=== PATIENT | female | born 1990 | race African-American/Black ===

== ENCOUNTER 2023-01-31 18:51 | Emergency (ER) | payer BC, SELFPAY ==
--- OUTSIDE RECORDS SUMMARY | 2023-01-31 18:55 | XMS REPORT | Continuity of Care Document ---
Author Name Unknown Address [address] [facility] [address] [place] [address] [facility] thconnect Address [address] [facility]. [address] [place] [address] Care Team Providers Care Oracle Scm Consultant Name Role Phone SARAH SPENCE Primary Care Physician Unavailab bettie EDDOC, GENERIC FOR EDM Attending Clinician UnaSARAH Nichole Attending Clinician Unavailable Sarah Farrell Attending Clinician [phone] [facility] Unavailab LOR Roman Attending Clinician Unavailable DILIP ALVARADO Attending Clinician Unava THANH Burgess Attending Clinician Unavail able Feliciano Hinojosa Attending Clinician Unavailable RABIA MAGANA Attending Clinician Unavailable Kelley Tatum MD Attending Clinician [phone] KELLEY TATUM Attending Clinician Unavailable KELLEY TATUM Attending Clinician Unavailable Doctor Unassigned, Schubert Attending Clinician U Thanh Desai DO Attending Clinician Rabia Magana MD Attending Clinician [phone] Physician, No Primary or Family Admitting Clinic ely Unavailable Payers Payer Name Policy Type Policy Number Effective Date Expirati on Date Source [facility] [employer] [id number] 2011 00:00:00 Problems Condition Name Condition Details Condition Category Status Onset Date Resolution Date Last Treatment Date Treating Clinician Comments Source Chronic idiopathic urticaria Chronic idiopathic urticaria Disease Active 09-26 00:00: 00 [facility] Sensation of fullness in left ear Sensation of fullness in left ear Disease Active 09-26 00:00: 00 [facility] Mild persistent asthma with exacerbati on Mild persistent asthma with exacerbati on Disease Active 09-26 00:00: 00 [facility] Lymphadeno camilla Lymphadeno camilla Disease Active 09-26 00:00: 00 [facility] Allergic rhinitis due to pollen Allergic rhinitis due to pollen Disease Active 09-26 00:00: 00 [facility] Adverse effect of vaccine, subsequent encounter Adverse effect of vaccine, subsequent encounter Disease Active 09-26 00:00: 00 [facility] HERBER positive HERBER positive Disease Active 04-29 00:00: 00 [facility] Mass of ovary Mass of ovary Disease Active 10-17 00:00: 00 [facility] Well adult exam Well adult exam Disease Active 10-17 00:00: 00 [facility] Dyspnea and respirator y abnormalit y Dyspnea and respirator y abnormalit y Disease Active 07-22 00:00: 00 Overview: Formattin g of this note might be different from the original. ICD10 Diagnosis Term Credit Representative Utility [facility] Idiopathic angioedema Idiopathic angioedema Disease Active 04-24 00:00: 00 [facility] Angioedema Angioedema Disease Active 04-24 00:00: 00 [facility] Allergies, Adverse Reactions, Alerts Allergy Name Allergy Type Status Severity Reaction(s) Onset Date Inactive Date Treating Clinician Comments Source Tuna Oil Drug Allergy Active Unknown - See comments 2020-02 00:00: 00 [facility] CHICKEN DERIVED DRUG INGREDI Active Unknown-Cmnt 2020-02 00:00: [facility]N [facility]ED[facility] Active Unknown-Cmnt 2020-02 00:00: 00 [facility] GREEN PEPPER DRUG INGREDI Active Unknown-Cmnt 2020-02 00:00: 00 [facility] POTATO DRUG INGREDI Active Unknown-Cmnt 2020-02 00:00: 00 [facility] SHRIMP DRUG INGREDI Active Unknown-Cmnt 2020-02 00:00: 00 [facility] TREE NUTS Food Active Unknown-Cmnt 2020-02 00:00: 00 [facility] TUNA OIL DRUG INGREDI Active Unknown-Cmnt 2020-02 00:00: 00 [facility] Chicken Derived Drug Allergy Active Unknown - See comments 2020-02 00:00: 00 [facility] Charleston Drug Allergy Active Unknown - See comments 2020-02 00:00: 00 [facility] Green Pepper Drug Allergy Active Unknown - See comments 2020-02 00:00: 00 [facility] Potato Drug Allergy Active Unknown - See comments 2020-02 00:00: 00 [facility] Shrimp Drug Allergy Active Unknown - See comments 2020-02 00:00: 00 [facility] Tree Nuts Food Allergy Active Unknown - See comments 2020-02 00:00: 00 [facility] iodine DA Active U 2014-02 00:00: 00 [facility] ceftriax one DA Active U GEN SWELLING 2014-02 00:00: 00 [facility] iodine DA Active U GEN SWELLING 2014-02 00:00: 00 [facility] Ceftazid juan daniel (Bulk) Propensi ty to adverse reaction s Active Swelling 06-22 00:00: 00 [facility] Iodine Propensi ty to adverse reaction s Active Swelling 06-22 00:00: 00 [facility] CEFTAZID JUAN DANIEL (BULK) DRUG Active Swelling 06-22 00:00: 00 [facility] IODINE DRUG INGREDI Active Swelling 06-22 00:00: 00 [facility] Iodine Drug Allergy Active Swelling 06-22 00:00: 00 Other reaction( s): Unknown [facility] Social History Social Habit Start Date Stop Date Quantity Comments Source Alcohol Comment social [facility] Gender identity [facility] Exposure to SARS-CoV-2 (event) Not sure [facility] Alcohol intake 2022-10-03 00:00:00 2022-10-03 00:00:00 Current drinker of alcohol (finding) [facility] History of Social function 2022-10-03 00:00:00 2022-10-03 00:00:00 [facility] Tobacco use and exposure 2022-10-03 00:00:00 2022-10-03 00:00:00 Smokeless tobacco non-user [facility] Sex Assigned At 1990 00:00:00 1990 00:00:00 [facility] Smoking Status Start Date Stop Date Source Never smoked tobacco [facility] Medications Ordered Medication Name Filled Medication Name Start Date Stop Date Current Medication? Ordering Clinician Indication Dosage Frequency Signature (SIG) Comments Components Source FOLIC ACID/MULTIV ITS-MIN (ADULT MULTIVITAMI N GUMMIES ORAL) 10-03 10:59: 48 10-03 00:00 :00 No Take by mouth. [facility] FOLIC ACID/MULTIV ITS-MIN (ADULT MULTIVITAMI N GUMMIES ORAL) 10-03 10:59: 48 10-03 00:00 :00 No Take by mouth. [facility] ferrous sulfate (IRON, FERROUS SULFATE,) 325 mg (65 mg iron) tablet 10-03 10:59: 44 10-03 00:00 :00 No 325mg Take 325 mg by mouth 2 (two) times daily. [facility] coffee extract (GREEN COFFEE SHANKAR) 400 mg Tab 10-03 10:59: 44 10-03 00:00 :00 No Take by mouth. [facility] ferrous sulfate (IRON, FERROUS SULFATE,) 325 mg (65 mg iron) tablet 10-03 10:59: 44 10-03 00:00 :00 No 325mg Take 325 mg by mouth 2 (two) times daily. [facility] coffee extract (GREEN COFFEE SHANKAR) 400 mg Tab 10-03 10:59: 44 10-03 00:00 :00 No Take by mouth. [facility] levonorgest reL (MIRENA) IUD 1 Device 05-31 22:00: 00 05-31 22:00 :00 No [id number] 1{devic e} [facility] levonorgest reL (MIRENA) IUD 1 Device 05-31 22:00: 00 05-31 20:30 :00 No [id number] 1{devic e} [facility] levonorgest reL (MIRENA) IUD 1 Device 05-31 22:00: 00 05-31 20:30 :00 No [id number] 1{devic e} 1 Device, Intrauteri ne, ONCE, 1 dose, 05/31/20 at 1700, Routine [facility] levonorgest reL (MIRENA) IUD 1 Device 05-31 22:00: 00 05-31 20:30 :00 No [id number] 1{devic e} [facility] levonorgest reL (MIRENA) IUD 1 Device 05-31 22:00: 00 05-31 20:30 :00 No [id number] 1{devic e} 1 Device, Intrauteri ne, ONCE, 1 dose, 05/31/20 at 1700, Routine [facility] levonorgest reL (MIRENA) IUD 1 Device 05-31 22:00: 00 05-31 20:30 :00 No [id number] 1{devic e} [facility] levonorgest reL (MIRENA) IUD 1 Device 05-31 22:00: 00 05-31 20:30 :00 No [id number] 1{devic e} 1 Device, Intrauteri ne, ONCE, 1 dose, Sat05/31/20 at 1700, Routine [facility] levonorgest rel (MIRENA) 20 mcg/24 hours (5 yrs) 52 mg IUD 05-31 20:45: 38 05-31 00:00 :00 No 1{devic e} 1 Device by Intrauteri ne route once now. [facility] levonorgest rel (MIRENA) 20 mcg/24 hours (5 yrs) 52 mg IUD 05-31 20:45: 38 05-31 00:00 :00 No 1{devic e} 1 Device by Intrauteri ne route once now. [facility] levonorgest rel (MIRENA) 20 mcg/24 hours (5 yrs) 52 mg IUD 05-31 20:45: 38 05-31 00:00 :00 No 1{devic e} 1 Device by Intrauteri ne route once now. [facility] levonorgest rel (MIRENA) 20 mcg/24 hours (5 yrs) 52 mg IUD 05-31 20:45: 38 05-31 00:00 :00 No 1{devic e} 1 Device by Intrauteri ne route once now. [facility] levonorgest rel (MIRENA) 20 mcg/24 hours (5 yrs) 52 mg IUD 05-31 20:45: 38 05-31 00:00 :00 No 1{devic e} 1 Device by Intrauteri ne route once now. [facility] levonorgest rel (MIRENA) 20 mcg/24 hours (5 yrs) 52 mg IUD - 20:45: 38 05-31 00:00 :00 No 1{devic e} 1 Device by Intrauteri ne route once now. [facility] it[facility] coffee extract (GREEN COFFEE SHANKAR) 400 mg Tab 2021-0 4-06 19:26: 01 Yes Take by mouth. [facility] ity [facility] levonorgest rel (MIRENA) 20 mcg/24 hours (5 yrs) 52 mg IUD 2021-0 4-06 19:26: 01 Yes 1{devic e} 1 Device by Intrauteri ne route once now. [facility] ity [facility] coffee extract (GREEN COFFEE SHANKAR) 400 mg Tab 2021-0 4-06 19:26: 01 Yes Take by mouth. [facility] ity [facility] levonorgest rel (MIRENA) 20 mcg/24 hours (5 yrs) 52 mg IUD 2021-0 4-06 19:26: 01 Yes 1{devic e} 1 Device by Intrauteri ne route once now. [facility] extract (GREEN COFFEE SHANKAR) 400 mg Tab 2021-0 4-06 19:26: 01 Yes Take by mouth. [facility] it[facility] coffee extract (GREEN COFFEE SHNAKAR) 400 mg Tab 2021-0 4-06 19:26: 01 Yes Take by mouth. [facility] it[facility] coffee extract (GREEN COFFEE SHANKAR) 400 mg Tab 2021-0 4-06 19:26: 01 Yes Take by mouth. [facility] coffee extract (GREEN COFFEE SHANKAR) 400 mg Tab 2021-0 4-06 19:26: 01 Yes Take by mouth. [facility] coffee extract (GREEN COFFEE SHANKAR) 400 mg Tab 2021-0 4-06 19:26: 01 Yes Take by mouth. [facility] coffee extract (GREEN COFFEE SHANKAR) 400 mg Tab 2021-0 4-06 19:26: 01 Yes Take by mouth. [facility] it[facility] coffee extract (GREEN COFFEE SHANKAR) 400 mg Tab 2021-0 4-06 19:26: 01 Yes Take by mouth. [facility] coffee extract (GREEN COFFEE SHANKAR) 400 mg Tab 2021-0 4-06 14:26: 01 Yes Take by mouth. [facility]L 20 mcg/24 hours (6 yrs) 52 mg IUD 2021-0 4-06 00:00: 00 06-01 04:59 :00 No [id number] 1{devic e} 1 Device by Intrauteri ne route once now for 1 dose. [facility]L 20 mcg/24 hours (6 yrs) 52 mg IUD 2020-0 4-06 00:00: 00 06-01 04:59 :00 No [id number] 1{devic e} 1 Device by Intrauteri ne route once now for 1 dose. [facility] reL 20 mcg/24 hours (6 yrs) 52 mg IUD 2020-0 4- 00:00: 00 05-31 00:00 :00 No [id number] 1{devic e} 1 Device by Intrauteri ne route once now for 1 dose. [facility] levonorgest reL 20 mcg/24 hours (6 yrs) 52 mg IUD 2020-0 05-31 00:00: 00 05-31 00:00 :00 No [id number] 1{devic e} 1 Device by Intrauteri ne route once now for 1 dose. [facility] levonorgest reL 20 mcg/24 hours (6 yrs) 52 mg IUD 05-31 00:00: 00 05-31 00:00 :00 No [id number] 1{devic e} 1 Device by Intrauteri ne route once now for 1 dose. [facility] levonorgest reL 20 mcg/24 hours (6 yrs) 52 mg IUD 4- 00:00: 00 05-31 00:00 :00 No [id number] 1{devic e} 1 Device by Intrauteri ne route once now for 1 dose. [facility] levonorgest rel (MIRENA) 20 mcg/24 hours (5 yrs) 52 mg IUD 11-03 22:14: 37 Yes 1{devic e} 1 Device by Intrauteri ne route once now. [facility] levonorgest rel (MIRENA) 20 mcg/24 hours (5 yrs) 52 mg IUD 11-03 22:14: 37 Yes 1{devic e} 1 Device by Intrauteri ne route once now. [facility] levonorgest rel (MIRENA) 20 mcg/24 hours (5 yrs) 52 mg IUD 11-03 22:14: 37 Yes 1{devic e} 1 Device by Intrauteri ne route once now. [facility] levonorgest rel (MIRENA) 20 mcg/24 hours (5 yrs) 52 mg IUD 11-03 22:14: 37 Yes 1{devic e} 1 Device by Intrauteri ne route once now. [facility] levonorgest rel (MIRENA) 20 mcg/24 hours (5 yrs) 52 mg IUD 11-03 22:14: 37 Yes 1{devic e} 1 Device by Intrauteri ne route once now. [facility] levonorgest rel (MIRENA) 20 mcg/24 hours (5 yrs) 52 mg IUD 11-03 22:14: 37 Yes 1{devic e} 1 Device by Intrauteri ne route once now. [facility] FOLIC ACID/MULTIV ITS-MIN (ADULT MULTIVITAMI N GUMMIES ORAL) 11-03 22:01: 43 Yes Take by mouth. [facility] ferrous sulfate (IRON, FERROUS SULFATE,) 325 mg (65 mg iron) tablet 11-03 22:01: 43 Yes 325mg Take 325 mg by mouth 2 (two) times daily. [facility] vitamin B-12 (VITAMIN B-12) 1,000 mcg tablet 11-03 22:01: 43 Yes 1000ug Take 1,000 mcg by mouth daily. [facility] coffee extract (GREEN COFFEE SHANKAR) 400 mg Tab 11-03 22:01: 43 Yes Take by mouth. [facility] FOLIC ACID/MULTIV ITS-MIN (ADULT MULTIVITAMI N GUMMIES ORAL) 11-03 22:01: 43 Yes Take by mouth. [facility] ferrous sulfate (IRON, FERROUS SULFATE,) 325 mg (65 mg iron) tablet 11-03 22:01: 43 Yes 325mg Take 325 mg by mouth 2 (two) times daily. [facility] vitamin B-12 (VITAMIN B-12) 1,000 mcg tablet 11-03 22:01: 43 Yes 1000ug Take 1,000 mcg by mouth daily. [facility] coffee extract (GREEN COFFEE SHANKAR) 400 mg Tab 11-03 22:01: 43 Yes Take by mouth. [facility] FOLIC ACID/MULTIV ITS-MIN (ADULT MULTIVITAMI N GUMMIES ORAL) 11-03 22:01: 43 Yes Take by mouth. [facility] ferrous sulfate (IRON, FERROUS SULFATE,) 325 mg (65 mg iron) tablet 11-03 22:01: 43 Yes 325mg Take 325 mg by mouth 2 (two) times daily. [facility] vitamin B-12 (VITAMIN B-12) 1,000 mcg tablet 11-03 22:01: 43 Yes 1000ug Take 1,000 mcg by mouth daily. [facility] coffee extract (GREEN COFFEE SHANKAR) 400 mg Tab 11-03 22:01: 43 Yes Take by mouth. [facility] FOLIC ACID/MULTIV ITS-MIN (ADULT MULTIVITAMI N GUMMIES ORAL) 11-03 22:01: 43 Yes Take by mouth. [facility] ferrous sulfate (IRON, FERROUS SULFATE,) 325 mg (65 mg iron) tablet 11-03 22:01: 43 Yes 325mg Take 325 mg by mouth 2 (two) times daily. [facility] vitamin B-12 (VITAMIN B-12) 1,000 mcg tablet 11-03 22:01: 43 Yes 1000ug Take 1,000 mcg by mouth daily. [facility] FOLIC ACID/MULTIV ITS-MIN (ADULT MULTIVITAMI N GUMMIES ORAL) 11-03 22:01: 43 Yes Take by mouth. [facility] ferrous sulfate (IRON, FERROUS SULFATE,) 325 mg (65 mg iron) tablet 11-03 22:01: 43 Yes 325mg Take 325 mg by mouth 2 (two) times daily. [facility] vitamin B-12 (VITAMIN B-12) 1,000 mcg tablet 11-03 22:01: 43 Yes 1000ug Take 1,000 mcg by mouth daily. [facility] FOLIC ACID/MULTIV ITS-MIN (ADULT MULTIVITAMI N GUMMIES ORAL) 11-03 22:01: 43 Yes Take by mouth. [facility] ferrous sulfate (IRON, FERROUS SULFATE,) 325 mg (65 mg iron) tablet 11-03 22:01: 43 Yes 325mg Take 325 mg by mouth 2 (two) times daily. [facility] vitamin B-12 (VITAMIN B-12) 1,000 mcg tablet 11-03 22:01: 43 Yes 1000ug Take 1,000 mcg by mouth daily. [facility] FOLIC ACID/MULTIV ITS-MIN (ADULT MULTIVITAMI N GUMMIES ORAL) 11-03 22:01: 43 Yes Take by mouth. [facility] ferrous sulfate (IRON, FERROUS SULFATE,) 325 mg (65 mg iron) tablet 11-03 22:01: 43 Yes 325mg Take 325 mg by mouth 2 (two) times daily. [facility] vitamin B-12 (VITAMIN B-12) 1,000 mcg tablet 11-03 22:01: 43 Yes 1000ug Take 1,000 mcg by mouth daily. [facility] FOLIC ACID/MULTIV ITS-MIN (ADULT MULTIVITAMI N GUMMIES ORAL) 11-03 22:01: 43 Yes Take by mouth. [facility] ferrous sulfate (IRON, FERROUS SULFATE,) 325 mg (65 mg iron) tablet 11-03 22:01: 43 Yes 325mg Take 325 mg by mouth 2 (two) times daily. [facility] vitamin B-12 (VITAMIN B-12) 1,000 mcg tablet 11-03 22:01: 43 Yes 1000ug Take 1,000 mcg by mouth daily. [facility] FOLIC ACID/MULTIV ITS-MIN (ADULT MULTIVITAMI N GUMMIES ORAL) 11-03 22:01: 43 Yes Take by mouth. [facility] ferrous sulfate (IRON, FERROUS SULFATE,) 325 mg (65 mg iron) tablet 11-03 22:01: 43 Yes 325mg Take 325 mg by mouth 2 (two) times daily. [facility] vitamin B-12 (VITAMIN B-12) 1,000 mcg tablet 11-03 22:01: 43 Yes 1000ug Take 1,000 mcg by mouth daily. [facility] FOLIC ACID/MULTIV ITS-MIN (ADULT MULTIVITAMI N GUMMIES ORAL) 11-03 22:01: 43 Yes Take by mouth. [facility] ferrous sulfate (IRON, FERROUS SULFATE,) 325 mg (65 mg iron) tablet 11-03 22:01: 43 Yes 325mg Take 325 mg by mouth 2 (two) times daily. [facility] vitamin B-12 (VITAMIN B-12) 1,000 mcg tablet 11-03 22:01: 43 Yes 1000ug Take 1,000 mcg by mouth daily. [facility] FOLIC ACID/MULTIV ITS-MIN (ADULT MULTIVITAMI N GUMMIES ORAL) 11-03 22:01: 43 Yes Take by mouth. [facility] ferrous sulfate (IRON, FERROUS SULFATE,) 325 mg (65 mg iron) tablet 11-03 22:01: 43 Yes 325mg Take 325 mg by mouth 2 (two) times daily. [facility] vitamin B-12 (VITAMIN B-12) 1,000 mcg tablet 11-03 22:01: 43 Yes 1000ug Take 1,000 mcg by mouth daily. [facility] FOLIC ACID/MULTIV ITS-MIN (ADULT MULTIVITAMI N GUMMIES ORAL) 11-03 22:01: 43 Yes Take by mouth. [facility] ferrous sulfate (IRON, FERROUS SULFATE,) 325 mg (65 mg iron) tablet 11-03 22:01: 43 Yes 325mg Take 325 mg by mouth 2 (two) times daily. [facility] vitamin B-12 (VITAMIN B-12) 1,000 mcg tablet 11-03 22:01: 43 Yes 1000ug Take 1,000 mcg by mouth daily. [facility] FOLIC ACID/MULTIV ITS-MIN (ADULT MULTIVITAMI N GUMMIES ORAL) 11-03 22:01: 43 Yes Take by mouth. [facility] ferrous sulfate (IRON, FERROUS SULFATE,) 325 mg (65 mg iron) tablet 11-03 22:01: 43 Yes 325mg Take 325 mg by mouth 2 (two) times daily. [facility] vitamin B-12 (VITAMIN B-12) 1,000 mcg tablet 11-03 22:01: 43 Yes 1000ug Take 1,000 mcg by mouth daily. [facility] coffee extract (GREEN COFFEE SHANKAR) 400 mg Tab 11-03 22:01: 43 Yes Take by mouth. [facility] FOLIC ACID/MULTIV ITS-MIN (ADULT MULTIVITAMI N GUMMIES ORAL) 11-03 22:01: 43 Yes Take by mouth. [facility] ferrous sulfate (IRON, FERROUS SULFATE,) 325 mg (65 mg iron) tablet 11-03 22:01: 43 Yes 325mg Take 325 mg by mouth 2 (two) times daily. [facility] vitamin B-12 (VITAMIN B-12) 1,000 mcg tablet 11-03 22:01: 43 Yes 1000ug Take 1,000 mcg by mouth daily. [facility] coffee extract (GREEN COFFEE SHANKAR) 400 mg Tab 11-03 22:01: 43 Yes Take by mouth. [facility] FOLIC ACID/MULTIV ITS-MIN (ADULT MULTIVITAMI N GUMMIES ORAL) 11-03 22:01: 43 Yes Take by mouth. [facility] ferrous sulfate (IRON, FERROUS SULFATE,) 325 mg (65 mg iron) tablet 11-03 22:01: 43 Yes 325mg Take 325 mg by mouth 2 (two) times daily. [facility] vitamin B-12 (VITAMIN B-12) 1,000 mcg tablet 11-03 22:01: 43 Yes 1000ug Take 1,000 mcg by mouth daily. [facility] coffee extract (GREEN COFFEE SHANKAR) 400 mg Tab 11-03 22:01: 43 Yes Take by mouth. [facility] FOLIC ACID/MULTIV ITS-MIN (ADULT MULTIVITAMI N GUMMIES ORAL) 11-03 17:01: 43 Yes Take by mouth. [facility] ferrous sulfate (IRON, FERROUS SULFATE,) 325 mg (65 mg iron) tablet 11-03 17:01: 43 Yes 325mg Take 325 mg by mouth 2 (two) times daily. [facility] vitamin B-12 (VITAMIN B-12) 1,000 mcg tablet 11-03 17:01: 43 Yes 1000ug Take 1,000 mcg by mouth daily. [facility] vitamin B-12 (VITAMIN B-12) 1,000 mcg tablet 11-03 17:01: 43 Yes 1000ug Take 1,000 mcg by mouth daily. [facility] vitamin B-12 (VITAMIN B-12) 1,000 mcg tablet 11-03 17:01: 43 Yes 1000ug Take 1,000 mcg by mouth daily. [facility] FOLIC ACID/MULTIV ITS-MIN (ADULT MULTIVITAMI N GUMMIES ORAL) 10-06 18:22: 45 Yes Take by mouth. [facility] ferrous sulfate (IRON, FERROUS SULFATE,) 325 mg (65 mg iron) tablet 10-06 18:22: 45 Yes 325mg Take 325 mg by mouth 2 (two) times daily. [facility] vitamin B-12 (VITAMIN B-12) 1,000 mcg tablet 10-06 18:22: 45 Yes 1000ug Take 1,000 mcg by mouth daily. [facility] coffee extract (GREEN COFFEE SHANKAR) 400 mg Tab 10-06 18:22: 45 Yes Take by mouth. [facility] misoprostol (CYTOTEC) 200 mcg tablet 10-03 00:00: 00 Yes [id number] Take one tablet night before procedure and one tablet morning of procedure [facility] misoprostol (CYTOTEC) 200 mcg tablet 10-03 00:00: 00 Yes [id number] Take one tablet night before procedure and one tablet morning of procedure [facility] misoprostol (CYTOTEC) 200 mcg tablet 10-03 00:00: 00 Yes [id number] Take one tablet night before procedure and one tablet morning of procedure [facility] misoprostol (CYTOTEC) 200 mcg tablet 10-03 00:00: 00 Yes [id number] Take one tablet night before procedure and one tablet morning of procedure [facility] misoprostol (CYTOTEC) 200 mcg tablet 10-03 00:00: 00 Yes [id number] Take one tablet night before procedure and one tablet morning of procedure [facility] misoprostol (CYTOTEC) 200 mcg tablet 10-03 00:00: 00 Yes [id number] Take one tablet night before procedure and one tablet morning of procedure [facility] misoprostol (CYTOTEC) 200 mcg tablet 10-03 00:00: 00 Yes [id number] Take one tablet night before procedure and one tablet morning of procedure [facility] misoprostol (CYTOTEC) 200 mcg tablet 10-03 00:00: 00 Yes [id number] Take one tablet night before procedure and one tablet [facility] mcg tablet 10-03 00:00: 00 Yes [id number] Take one tablet night before procedure and one tablet morning of procedure [facility] misoprostol (CYTOTEC) 200 mcg tablet 10-03 00:00: 00 Yes [id number] Take one tablet night before procedure and one tablet morning of [facility]EC) 200 mcg tablet 10-03 00:00: 00 Yes [id number] Take one tablet night before procedure and one tablet morning of procedure [facility] misoprostol (CYTOTEC) 200 mcg tablet 10-03 00:00: 00 Yes [id number] Take one tablet night before procedure and one tablet morning of procedure [facility] misoprostol (CYTOTEC) 200 mcg tablet 10-03 00:00: 00 Yes [id number] Take one tablet night before procedure and one tablet morning of procedure [facility] misoprostol (CYTOTEC) 200 mcg tablet 10-03 00:00: 00 Yes [id number] Take one tablet night before procedure and one tablet morning of procedure [facility] misoprostol (CYTOTEC) 200 mcg tablet 10-03 00:00: 00 Yes [id number] Take one tablet night before procedure and one tablet morning of procedure [facility] misoprostol (CYTOTEC) 200 mcg tablet 10-03 00:00: 00 Yes [id number] Take one tablet night before procedure and one tablet morning of procedure [facility] misoprostol (CYTOTEC) 200 mcg tablet 10-03 00:00: 00 Yes [id number] Take one tablet night before procedure and one tablet morning of procedure [facility] misoprostol (CYTOTEC) 200 mcg tablet 10-03 00:00: 00 10-03 00:00 :00 No [id number] Take one tablet night before procedure and one tablet morning of procedure [facility] misoprostol (CYTOTEC) 200 mcg tablet 10-03 00:00: 00 10-03 00:00 :00 No [id number] Take one tablet night before procedure and one tablet morning of procedure [facility] XOLAIR 150 mg injection 08-15 00:00: 00 Yes once every month. [facility] [place] [facility] XOLAIR 150 mg injection 08-15 00:00: 00 Yes once every month. [facility] XOLAIR 150 mg injection 08-15 00:00: 00 Yes once every month. [facility] [place] [facility] XOLAIR 150 mg injection 08-15 00:00: 00 Yes once every month. [facility] [place] [facility] XOLAIR 150 mg injection 08-15 00:00: 00 Yes once every month. [facility] [place] [facility] XOLAIR 150 mg injection 08-15 00:00: 00 Yes once every month. [facility] [place] [facility] XOLAIR 150 mg injection 08-15 00:00: 00 Yes once every month. [facility] [place] [facility] XOLAIR 150 mg injection 08-15 00:00: 00 Yes once every month. [facility] XOLAIR 150 mg injection 08-15 00:00: 00 Yes once every month. [facility] [place] [facility] XOLAIR 150 mg injection 08-15 00:00: 00 Yes once every month. [facility] [place] [facility] XOLAIR 150 mg injection 08-15 00:00: 00 Yes once every month. [facility] XOLAIR 150 mg injection 08-15 00:00: 00 Yes once every month. [facility] XOLAIR 150 mg injection 08-15 00:00: 00 Yes once every month. [facility] XOLAIR 150 mg injection 08-15 00:00: 00 Yes [facility] XOLAIR 150 mg injection 08-15 00:00: 00 Yes once every month. [facility] XOLAIR 150 mg injection 08-15 00:00: 00 Yes once every month. [facility] XOLAIR 150 mg injection 08-15 00:00: 00 Yes once every month. [facility] XOLAIR 150 mg injection 08-15 00:00: 00 10-03 00:00 :00 No once every month. [facility] XOLAIR 150 mg injection 08-15 00:00: 00 10-03 00:00 :00 No once every month. [facility] mometasone (NASONEX) 50 mcg/actuati on nasal spray 03-25 00:00: 00 Yes 1{spray } Use 1 [place] in each nostril every 12 (twelve) hours. [facility]EPIPEN 2-ISAIAS) 0.3 mg/0.3 mL (1:1,000) injection 03-25 00:00: 00 Yes Inject 0.3mg intramuscu larly into the thigh once as needed for severe allergic reaction and then immediatel y call 911 [facility] mometasone (NASONEX) 50 mcg/actuati on nasal spray 03-25 00:00: 00 Yes 1{spray } Use 1 [place] in each nostril every 12 (twelve) hours. [facility] EPINEPHrine (EPIPEN 2-ISAIAS) 0.3 mg/0.3 mL (1:1,000) injection 03-25 00:00: 00 Yes Inject 0.3mg intramuscu larly into the thigh once as needed for severe allergic reaction and then immediatel y call 911 [facility] mometasone (NASONEX) 50 mcg/actuati on nasal spray 03-25 00:00: 00 Yes 1{spray } Use 1 [place] in each nostril every 12 (twelve) hours. [facility] EPINEPHrine (EPIPEN 2-ISAIAS) 0.3 mg/0.3 mL (1:1,000) injection 03-25 00:00: 00 Yes Inject 0.3mg intramuscu larly into the thigh once as needed for severe allergic reaction and then immediatel y call 911 [facility] mometasone (NASONEX) 50 mcg/actuati on nasal spray 03-25 00:00: 00 Yes 1{spray } Use 1 [place] in each nostril every 12 (twelve) hours. [facility] EPINEPHrine (EPIPEN 2-ISAIAS) 0.3 mg/0.3 mL (1:1,000) injection 03-25 00:00: 00 Yes Inject 0.3mg intramuscu larly into the thigh once as needed for severe allergic reaction and then immediatel y call 911 [facility] mometasone (NASONEX) 50 mcg/actuati on nasal spray 03-25 00:00: 00 Yes 1{spray } Use 1 [place] in each nostril every 12 (twelve) hours. [facility] EPINEPHrine (EPIPEN 2-ISAIAS) 0.3 mg/0.3 mL (1:1,000) injection 03-25 00:00: 00 Yes Inject 0.3mg intramuscu larly into the thigh once as needed for severe allergic reaction and then immediatel y call 911 [facility] mometasone (NASONEX) 50 mcg/actuati on nasal spray 03-25 00:00: 00 Yes 1{spray } Use 1 [place] in each nostril every 12 (twelve) hours. [facility] EPINEPHrine (EPIPEN 2-ISAIAS) 0.3 mg/0.3 mL (1:1,000) injection 03-25 00:00: 00 Yes Inject 0.3mg intramuscu larly into the thigh once as needed for severe allergic reaction and then immediatel y call 911 [facility] mometasone (NASONEX) 50 mcg/actuati on nasal spray 03-25 00:00: 00 Yes 1{spray } Use 1 [place] in each nostril every 12 (twelve) hours. [facility] EPINEPHrine (EPIPEN 2-ISAIAS) 0.3 mg/0.3 mL (1:1,000) injection 03-25 00:00: 00 Yes Inject 0.3mg intramuscu larly into the thigh once as needed for severe allergic reaction and then immediatel y call 911 [facility] mometasone (NASONEX) 50 mcg/actuati on nasal spray 03-25 00:00: 00 Yes 1{spray } Use 1 [place] in each nostril every 12 (twelve) hours. [facility] EPINEPHrine (EPIPEN 2-ISAIAS) 0.3 mg/0.3 mL (1:1,000) injection 03-25 00:00: 00 Yes Inject 0.3mg intramuscu larly into the thigh once as needed for severe allergic reaction and then immediatel y call 911 [facility] mometasone (NASONEX) 50 mcg/actuati on nasal spray 03-25 00:00: 00 Yes 1{spray } Use 1 [place] in each nostril every 12 (twelve) hours. [facility] EPINEPHrine (EPIPEN 2-ISAIAS) 0.3 mg/0.3 mL (1:1,000) injection 03-25 00:00: 00 Yes Inject 0.3mg intramuscu larly into the thigh once as needed for severe allergic reaction and then immediatel y call 911 [facility] mometasone (NASONEX) 50 mcg/actuati on nasal spray 03-25 00:00: 00 Yes 1{spray } Use 1 [place] in each nostril every 12 (twelve) hours. [facility] (EPIPEN 2-ISAIAS) 0.3 mg/0.3 mL (1:1,000) injection 03-25 00:00: 00 Yes Inject 0.3mg intramuscu larly into the thigh once as needed for severe allergic reaction and then immediatel y call 911 [facility] mometasone (NASONEX) 50 mcg/actuati on nasal spray 03-25 00:00: 00 Yes 1{spray } Use 1 [place] in each nostril every 12 (twelve) hours. [facility] EPINEPHrine (EPIPEN 2-ISAIAS) 0.3 mg/0.3 mL (1:1,000) injection 03-25 00:00: 00 Yes Inject 0.3mg intramuscu larly into the thigh once as needed for severe allergic reaction and then immediatel y call 911 [facility] mometasone (NASONEX) 50 mcg/actuati on nasal spray 03-25 00:00: 00 Yes 1{spray } Use 1 [place] in each nostril every 12 (twelve) hours. [facility] EPINEPHrine (EPIPEN 2-ISAIAS) 0.3 mg/0.3 mL (1:1,000) injection 03-25 00:00: 00 Yes Inject 0.3mg intramuscu larly into the thigh once as needed for severe allergic reaction and then immediatel y call 911 [facility] mometasone (NASONEX) 50 mcg/actuati on nasal spray 03-25 00:00: 00 Yes 1{spray } Use 1 [place] in each nostril every 12 (twelve) hours. [facility] (EPIPEN 2-ISAIAS) 0.3 mg/0.3 mL (1:1,000) injection 03-25 00:00: 00 Yes Inject 0.3mg intramuscu larly into the thigh once as needed for severe allergic reaction and then immediatel y call 911 [facility] mometasone (NASONEX) 50 mcg/actuati on nasal spray 03-25 00:00: 00 Yes 1{spray } Use 1 [place] in each nostril every 12 (twelve) hours. [facility] EPINEPHrine (EPIPEN 2-ISAIAS) 0.3 mg/0.3 mL (1:1,000) injection 03-25 00:00: 00 Yes Inject 0.3mg intramuscu larly into the thigh once as needed for severe allergic reaction and then immediatel y call 911 [facility] mometasone (NASONEX) 50 mcg/actuati on nasal spray 03-25 00:00: 00 Yes 1{spray } Use 1 [place] in each nostril every 12 (twelve) hours. [facility] EPINEPHrine (EPIPEN 2-ISAIAS) 0.3 mg/0.3 mL (1:1,000) injection 03-25 00:00: 00 Yes Inject 0.3mg intramuscu larly into the thigh once as needed for severe allergic reaction and then immediatel y call 911 [facility] EPINEPHrine (EPIPEN 2-ISAIAS) 0.3 mg/0.3 mL (1:1,000) injection 03-25 00:00: 00 Yes Inject 0.3mg intramuscu larly into the thigh once as needed for severe allergic reaction and then immediatel y call 911 [facility] EPINEPHrine (EPIPEN 2-ISAIAS) 0.3 mg/0.3 mL (1:1,000) injection 03-25 00:00: 00 Yes Inject 0.3mg intramuscu larly into the thigh once as needed for severe allergic reaction and then immediatel y call 911 [facility] mometasone (NASONEX) 50 mcg/actuati on nasal spray 03-25 00:00: 00 Yes 1{spray } Use 1 [place] in each nostril every 12 (twelve) hours. [facility] EPINEPHrine (EPIPEN 2-ISAIAS) 0.3 mg/0.3 mL (1:1,000) injection 03-25 00:00: 00 Yes Inject 0.3mg intramuscu larly into the thigh once as needed for severe allergic reaction and then immediatel y call 911 [facility] mometasone (NASONEX) 50 mcg/actuati on nasal spray 03-25 00:00: 00 Yes 1{spray } Use 1 [place] in each nostril every 12 (twelve) hours. [facility] EPINEPHrine (EPIPEN 2-ISAIAS) 0.3 mg/0.3 mL (1:1,000) injection 03-25 00:00: 00 Yes Inject 0.3mg intramuscu larly into the thigh once as needed for severe allergic reaction and then immediatel y call 911 [facility] mometasone (NASONEX) 50 mcg/actuati on nasal spray 03-25 00:00: 00 10-03 00:00 :00 No 1{spray } Use 1 [place] in each nostril every 12 (twelve) hours. [facility] mometasone (NASONEX) 50 mcg/actuati on nasal spray 03-25 00:00: 00 10-03 00:00 :00 No 1{spray } Use 1 [place] in each nostril every 12 (twelve) hours. [facility] predniSONE (DELTASONE) 20 mg tablet 2013-02 00:00: 00 Yes 20mg Take 1 Tab by mouth daily. [facility] predniSONE (DELTASONE) 20 mg tablet 2013-02 00:00: 00 Yes 20mg Take 1 Tab by mouth daily. [facility] predniSONE (DELTASONE) 20 mg tablet 2013-02 00:00: 00 Yes 20mg Take 1 Tab by mouth daily. [facility] predniSONE (DELTASONE) 20 mg tablet 2013-02 00:00: 00 Yes 20mg Take 1 Tab by mouth daily. [facility] predniSONE (DELTASONE) 20 mg tablet 2013-02 00:00: 00 Yes 20mg Take 1 Tab by mouth daily. [facility] predniSONE (DELTASONE) 20 mg tablet 2013-02 00:00: 00 Yes 20mg Take 1 Tab by mouth daily. [facility] predniSONE (DELTASONE) 20 mg tablet 2013-02 00:00: 00 Yes 20mg Take 1 Tab by mouth daily. [facility] predniSONE (DELTASONE) 20 mg tablet 2013-02 00:00: 00 Yes 20mg Take 1 Tab by mouth daily. [facility] predniSONE (DELTASONE) 20 mg tablet 2013-02 00:00: 00 Yes 20mg Take 1 Tab by mouth daily. [facility] predniSONE (DELTASONE) 20 mg tablet 2013-02 00:00: 00 Yes 20mg Take 1 Tab by mouth daily. [facility] predniSONE (DELTASONE) 20 mg tablet 2013-02 00:00: 00 Yes 20mg Take 1 Tab by mouth daily. [facility] predniSONE (DELTASONE) 20 mg tablet 2013-02 00:00: 00 Yes 20mg Take 1 Tab by mouth daily. [facility] predniSONE (DELTASONE) 20 mg tablet 2013-02 00:00: 00 Yes 20mg Take 1 Tab by mouth daily. [facility] predniSONE (DELTASONE) 20 mg tablet 2013-02 00:00: 00 Yes 20mg Take 1 Tab by mouth daily. [facility] predniSONE (DELTASONE) 20 mg tablet 2013-02 00:00: 00 Yes 20mg Take 1 Tab by mouth daily. [facility] predniSONE (DELTASONE) 20 mg tablet 2013-02 00:00: 00 Yes 20mg Take 1 Tab by mouth daily. [facility] predniSONE (DELTASONE) 20 mg tablet 2013-02 00:00: 00 Yes 20mg Take 1 Tab by mouth daily. [facility] predniSONE (DELTASONE) 20 mg tablet 2013-02 00:00: 00 10-03 00:00 :00 No 20mg Take 1 Tab by mouth daily. [facility] predniSONE (DELTASONE) 20 mg tablet 2013-02 00:00: 00 10-03 00:00 :00 No 20mg Take 1 Tab by mouth daily. [facility] predniSONE (DELTASONE) 20 mg tablet 06-03 00:00: 00 Yes 20mg Take 1 Tab by mouth 2 (two) times daily. [facility] predniSONE (DELTASONE) 20 mg tablet 06-03 00:00: 00 Yes 20mg Take 1 Tab by mouth 2 (two) times daily. [facility] predniSONE (DELTASONE) 20 mg tablet 06-03 00:00: 00 Yes 20mg Take 1 Tab by mouth 2 (two) times daily. [facility] predniSONE (DELTASONE) 20 mg tablet 06-03 00:00: 00 Yes 20mg Take 1 Tab by mouth 2 (two) times daily. [facility] predniSONE (DELTASONE) 20 mg tablet 06-03 00:00: 00 Yes 20mg Take 1 Tab by mouth 2 (two) times daily. [facility] predniSONE (DELTASONE) 20 mg tablet 06-03 00:00: 00 Yes 20mg Take 1 Tab by mouth 2 (two) times daily. [facility] predniSONE (DELTASONE) 20 mg tablet 06-03 00:00: 00 Yes 20mg Take 1 Tab by mouth 2 (two) times daily. [facility] predniSONE (DELTASONE) 20 mg tablet 06-03 00:00: 00 Yes 20mg Take 1 Tab by mouth 2 (two) times daily. [facility] predniSONE (DELTASONE) 20 mg tablet 06-03 00:00: 00 Yes 20mg Take 1 Tab by mouth 2 (two) times daily. [facility] predniSONE (DELTASONE) 20 mg tablet 06-03 00:00: 00 Yes 20mg Take 1 Tab by mouth 2 (two) times daily. [facility] predniSONE (DELTASONE) 20 mg tablet 06-03 00:00: 00 Yes 20mg Take 1 Tab by mouth 2 (two) times daily. [facility] predniSONE (DELTASONE) 20 mg tablet 06-03 00:00: 00 Yes 20mg Take 1 Tab by mouth 2 (two) times daily. [facility] predniSONE (DELTASONE) 20 mg tablet 06-03 00:00: 00 Yes 20mg Take 1 Tab by mouth 2 (two) times daily. [facility] predniSONE (DELTASONE) 20 mg tablet 06-03 00:00: 00 Yes 20mg Take 1 Tab by mouth 2 (two) times daily. [facility] predniSONE (DELTASONE) 20 mg tablet 06-03 00:00: 00 Yes 20mg Take 1 Tab by mouth 2 (two) times daily. [facility] predniSONE (DELTASONE) 20 mg tablet 06-03 00:00: 00 Yes 20mg Take 1 Tab by mouth 2 (two) times daily. [facility] predniSONE (DELTASONE) 20 mg tablet 06-03 00:00: 00 Yes 20mg Take 1 Tab by mouth 2 (two) times daily. [facility] predniSONE (DELTASONE) 20 mg tablet 06-03 00:00: 00 10-03 00:00 :00 No 20mg Take 1 Tab by mouth 2 (two) times daily. [facility] predniSONE (DELTASONE) 20 mg tablet 06-03 00:00: 00 10-03 00:00 :00 No 20mg Take 1 Tab by mouth 2 (two) times daily. [facility] omeprazole (PRILOSEC) 20 mg capsule 11-22 00:00: 00 Yes 20mg Take 1 Cap by mouth daily. [facility] omeprazole (PRILOSEC) 20 mg capsule 11-22 00:00: 00 Yes 20mg Take 1 Cap by mouth daily. [facility] omeprazole (PRILOSEC) 20 mg capsule 11-22 00:00: 00 Yes 20mg Take 1 Cap by mouth daily. [facility] omeprazole (PRILOSEC) 20 mg capsule 11-22 00:00: 00 Yes 20mg Take 1 Cap by mouth daily. [facility] omeprazole (PRILOSEC) 20 mg capsule 11-22 00:00: 00 Yes 20mg Take 1 Cap by mouth daily. [facility] omeprazole (PRILOSEC) 20 mg capsule 11-22 00:00: 00 Yes 20mg Take 1 Cap by mouth daily. [facility] omeprazole (PRILOSEC) 20 mg capsule 11-22 00:00: 00 Yes 20mg Take 1 Cap by mouth daily. [facility] omeprazole (PRILOSEC) 20 mg capsule 11-22 00:00: 00 Yes 20mg Take 1 Cap by mouth daily. [facility] omeprazole (PRILOSEC) 20 mg capsule 11-22 00:00: 00 Yes 20mg Take 1 Cap by mouth daily. [facility] omeprazole (PRILOSEC) 20 mg capsule 11-22 00:00: 00 Yes 20mg Take 1 Cap by mouth daily. [facility] omeprazole (PRILOSEC) 20 mg capsule 11-22 00:00: 00 Yes 20mg Take 1 Cap by mouth daily. [facility] omeprazole (PRILOSEC) 20 mg capsule 11-22 00:00: 00 Yes 20mg Take 1 Cap by mouth daily. [facility] omeprazole (PRILOSEC) 20 mg capsule 11-22 00:00: 00 Yes 20mg Take 1 Cap by mouth daily. [facility] omeprazole (PRILOSEC) 20 mg capsule 11-22 00:00: 00 Yes 20mg Take 1 Cap by mouth daily. [facility] omeprazole (PRILOSEC) 20 mg capsule 11-22 00:00: 00 Yes 20mg Take 1 Cap by mouth daily. [facility] omeprazole (PRILOSEC) 20 mg capsule 11-22 00:00: 00 Yes 20mg Take 1 Cap by mouth daily. [facility] omeprazole (PRILOSEC) 20 mg capsule 11-22 00:00: 00 Yes 20mg Take 1 Cap by mouth daily. [facility] omeprazole (PRILOSEC) 20 mg capsule 11-22 00:00: 00 10-03 00:00 :00 No 20mg Take 1 Cap by mouth daily. [facility] omeprazole (PRILOSEC) 20 mg capsule 11-22 00:00: 00 10-03 00:00 :00 No 20mg Take 1 Cap by mouth daily. [facility] cetirizine (ZYRTEC) 10 mg tablet 07-23 00:00: 00 Yes 10mg Take 1 Tab by mouth at bedtime. [facility] ranitidine (ZANTAC) 150 mg tablet 07-23 00:00: 00 Yes 150mg Take 1 Tab by mouth 2 (two) times daily. [facility] cetirizine (ZYRTEC) 10 mg tablet 07-23 00:00: 00 Yes 10mg Take 1 Tab by mouth at bedtime. [facility] ranitidine (ZANTAC) 150 mg tablet 07-23 00:00: 00 Yes 150mg Take 1 Tab by mouth 2 (two) times daily. [facility] cetirizine (ZYRTEC) 10 mg tablet 07-23 00:00: 00 Yes 10mg Take 1 Tab by mouth at bedtime. [facility] ranitidine (ZANTAC) 150 mg tablet 07-23 00:00: 00 Yes 150mg Take 1 Tab by mouth 2 (two) times daily. [facility] cetirizine (ZYRTEC) 10 mg tablet 07-23 00:00: 00 Yes 10mg Take 1 Tab by mouth at bedtime. [facility] ranitidine (ZANTAC) 150 mg tablet 07-23 00:00: 00 Yes 150mg Take 1 Tab by mouth 2 (two) times daily. [facility] cetirizine (ZYRTEC) 10 mg tablet 07-23 00:00: 00 Yes 10mg Take 1 Tab by mouth at bedtime. [facility] ranitidine (ZANTAC) 150 mg tablet 07-23 00:00: 00 Yes 150mg Take 1 Tab by mouth 2 (two) times daily. [facility] cetirizine (ZYRTEC) 10 mg tablet 07-23 00:00: 00 Yes 10mg Take 1 Tab by mouth at bedtime. [facility] ranitidine (ZANTAC) 150 mg tablet 07-23 00:00: 00 Yes 150mg Take 1 Tab by mouth 2 (two) times daily. [facility] cetirizine (ZYRTEC) 10 mg tablet 07-23 00:00: 00 Yes 10mg Take 1 Tab by mouth at bedtime. [facility] ranitidine (ZANTAC) 150 mg tablet 07-23 00:00: 00 Yes 150mg Take 1 Tab by mouth 2 (two) times daily. [facility] cetirizine (ZYRTEC) 10 mg tablet 07-23 00:00: 00 Yes 10mg Take 1 Tab by mouth at bedtime. [facility] cetirizine (ZYRTEC) 10 mg tablet 07-23 00:00: 00 Yes 10mg Take 1 Tab by mouth at bedtime. [facility] ranitidine (ZANTAC) 150 mg tablet 07-23 00:00: 00 Yes 150mg Take 1 Tab by mouth 2 (two) times daily. [facility] ranitidine (ZANTAC) 150 mg tablet 07-23 00:00: 00 Yes 150mg Take 1 Tab by mouth 2 (two) times daily. [facility] cetirizine (ZYRTEC) 10 mg tablet 07-23 00:00: 00 Yes 10mg Take 1 Tab by mouth at bedtime. [facility] ranitidine (ZANTAC) 150 mg tablet 07-23 00:00: 00 Yes 150mg Take 1 Tab by mouth 2 (two) times daily. [facility] cetirizine (ZYRTEC) 10 mg tablet 07-23 00:00: 00 Yes 10mg Take 1 Tab by mouth at bedtime. [facility] ranitidine (ZANTAC) 150 mg tablet 07-23 00:00: 00 Yes 150mg Take 1 Tab by mouth 2 (two) times daily. [facility] cetirizine (ZYRTEC) 10 mg tablet 07-23 00:00: 00 Yes 10mg Take 1 Tab by mouth at bedtime. [facility] ranitidine (ZANTAC) 150 mg tablet 07-23 00:00: 00 Yes 150mg Take 1 Tab by mouth 2 (two) times daily. [facility] cetirizine (ZYRTEC) 10 mg tablet 07-23 00:00: 00 Yes 10mg Take 1 Tab by mouth at bedtime. [facility] ranitidine (ZANTAC) 150 mg tablet 07-23 00:00: 00 Yes 150mg Take 1 Tab by mouth 2 (two) times daily. [facility] cetirizine (ZYRTEC) 10 mg tablet 07-23 00:00: 00 Yes 10mg Take 1 Tab by mouth at bedtime. [facility] ranitidine (ZANTAC) 150 mg tablet 07-23 00:00: 00 Yes 150mg Take 1 Tab by mouth 2 (two) times daily. [facility] cetirizine (ZYRTEC) 10 mg tablet 07-23 00:00: 00 Yes 10mg Take 1 Tab by mouth at bedtime. [facility] ranitidine (ZANTAC) 150 mg tablet 07-23 00:00: 00 Yes 150mg Take 1 Tab by mouth 2 (two) times daily. [facility] cetirizine (ZYRTEC) 10 mg tablet 07-23 00:00: 00 Yes 10mg Take 1 Tab by mouth at bedtime. [facility] ranitidine (ZANTAC) 150 mg tablet 07-23 00:00: 00 Yes 150mg Take 1 Tab by mouth 2 (two) times daily. [facility] cetirizine (ZYRTEC) 10 mg tablet 07-23 00:00: 00 Yes 10mg Take 1 Tab by mouth at bedtime. [facility] ranitidine (ZANTAC) 150 mg tablet 07-23 00:00: 00 Yes 150mg Take 1 Tab by mouth 2 (two) times daily. [facility] cetirizine (ZYRTEC) 10 mg tablet 07-23 00:00: 00 10-03 00:00 :00 No 10mg Take 1 Tab by mouth at bedtime. [facility] ranitidine (ZANTAC) 150 mg tablet 07-23 00:00: 00 10-03 00:00 :00 No 150mg Take 1 Tab by mouth 2 (two) times daily. [facility] cetirizine (ZYRTEC) 10 mg tablet 07-23 00:00: 00 10-03 00:00 :00 No 10mg Take 1 Tab by mouth at bedtime. [facility] ranitidine (ZANTAC) 150 mg tablet 07-23 00:00: 00 10-03 00:00 :00 No 150mg Take 1 Tab by mouth 2 (two) times daily. [facility] albuterol (PROVENTIL) 90 mcg/Actuati on Aero inhaler 04-05 00:00: 00 Yes 2{puff} Inhale 2 Puffs every 6 (six) hours as needed (shortness of breath, wheezing). [facility] albuterol (PROVENTIL) 90 mcg/Actuati on Aero inhaler 04-05 00:00: 00 Yes 2{puff} Inhale 2 Puffs every 6 (six) hours as needed (shortness of breath, wheezing). [facility] albuterol (PROVENTIL) 90 mcg/Actuati on Aero inhaler 04-05 00:00: 00 Yes 2{puff} Inhale 2 Puffs every 6 (six) hours as needed (shortness of breath, wheezing). [facility] albuterol (PROVENTIL) 90 mcg/Actuati on Aero inhaler 04-05 00:00: 00 Yes 2{puff} Inhale 2 Puffs every 6 (six) hours as needed (shortness of breath, wheezing). [facility] albuterol (PROVENTIL) 90 mcg/Actuati on Aero inhaler 04-05 00:00: 00 Yes 2{puff} Inhale 2 Puffs every 6 (six) hours as needed (shortness of breath, wheezing). [facility] albuterol (PROVENTIL) 90 mcg/Actuati on Aero inhaler 04-05 00:00: 00 Yes 2{puff} Inhale 2 Puffs every 6 (six) hours as needed (shortness of breath, wheezing). [facility] albuterol (PROVENTIL) 90 mcg/Actuati on Aero inhaler 04-05 00:00: 00 Yes 2{puff} Inhale 2 Puffs every 6 (six) hours as needed (shortness of breath, wheezing). [facility] albuterol (PROVENTIL) 90 mcg/Actuati on Aero inhaler 04-05 00:00: 00 Yes 2{puff} Inhale 2 Puffs every 6 (six) hours as needed (shortness of breath, wheezing). [facility] albuterol (PROVENTIL) 90 mcg/Actuati on Aero inhaler 04-05 00:00: 00 Yes 2{puff} Inhale 2 Puffs every 6 (six) hours as needed (shortness of breath, wheezing). [facility] albuterol (PROVENTIL) 90 mcg/Actuati on Aero inhaler 04-05 00:00: 00 Yes 2{puff} Inhale 2 Puffs every 6 (six) hours as needed (shortness of breath, wheezing). [facility] albuterol (PROVENTIL) 90 mcg/Actuati on Aero inhaler 04-05 00:00: 00 Yes 2{puff} Inhale 2 Puffs every 6 (six) hours as needed (shortness of breath, wheezing). [facility] albuterol (PROVENTIL) 90 mcg/Actuati on Aero inhaler 04-05 00:00: 00 Yes 2{puff} Inhale 2 Puffs every 6 (six) hours as needed (shortness of breath, wheezing). [facility] albuterol (PROVENTIL) 90 mcg/Actuati on Aero inhaler 04-05 00:00: 00 Yes 2{puff} Inhale 2 Puffs every 6 (six) hours as needed (shortness of breath, wheezing). [facility] albuterol (PROVENTIL) 90 mcg/Actuati on Aero inhaler 04-05 00:00: 00 Yes 2{puff} Inhale 2 Puffs every 6 (six) hours as needed (shortness of breath, wheezing). [facility] albuterol (PROVENTIL) 90 mcg/Actuati on Aero inhaler 04-05 00:00: 00 Yes 2{puff} Inhale 2 Puffs every 6 (six) hours as needed (shortness of breath, wheezing). [facility] albuterol (PROVENTIL) 90 mcg/Actuati on Aero inhaler 04-05 00:00: 00 Yes 2{puff} Inhale 2 Puffs every 6 (six) hours as needed (shortness of breath, wheezing). [facility] albuterol (PROVENTIL) 90 mcg/Actuati on Aero inhaler 04-05 00:00: 00 Yes 2{puff} Inhale 2 Puffs every 6 (six) hours as needed (shortness of breath, wheezing). [facility] albuterol (PROVENTIL) 90 mcg/Actuati on Aero inhaler 04-05 00:00: 00 10-03 00:00 :00 No 2{puff} Inhale 2 Puffs every 6 (six) hours as needed (shortness of breath, wheezing). [facility] albuterol (PROVENTIL) 90 mcg/Actuati on Aero inhaler 04-05 00:00: 00 10-03 00:00 :00 No 2{puff} Inhale 2 Puffs every 6 (six) hours as needed (shortness of breath, wheezing). [facility] Immunizations Ordered Immunization Name Filled Immunization Name Date Status Comments Source [facility] [facility] [place] 2021-04-27 00:00:00 Completed SARS-COV-2 COVID-19 PFIZER DIANA-SUCROSE VACCINE ([place]) 2021-04-27 00:00:00 Completed [facility] SARS-COV-2 COVID-19 PFIZER DIANA-SUCROSE VACCINE ([place]) 2021-04-27 00:00:00 Completed [facility] SARS-COV-2 COVID-19 PFIZER DIANA-SUCROSE VACCINE ([place]) 2021-04-27 00:00:00 Completed [facility] Influenza Virus Vaccine 2013-10-28 00:00:00 Completed [facility] Influenza Virus Vaccine 2013-10-28 00:00:00 Completed [facility] Influenza Virus Vaccine 2013-10-28 00:00:00 Completed [facility] Influenza Virus Vaccine 2013-10-28 00:00:00 Completed [facility] Influenza Virus Vaccine 2013-10-28 00:00:00 Completed [facility] Influenza Virus Vaccine 2013-10-28 00:00:00 Completed [facility] Influenza Virus Vaccine 2013-10-28 00:00:00 Completed [facility] Influenza Virus Vaccine 2013-10-28 00:00:00 Completed [facility] Influenza Virus Vaccine 2013-10-28 00:00:00 Completed [facility] Influenza Virus Vaccine 2013-10-28 00:00:00 Completed [facility] Influenza Virus Vaccine 2013-10-28 00:00:00 Completed [facility] Influenza Virus Vaccine 2013-10-28 00:00:00 Completed [facility] Influenza Virus Vaccine 2013-10-28 00:00:00 Completed [facility] Influenza Virus Vaccine 2013-10-28 00:00:00 Completed [facility] Influenza Virus Vaccine 2013-10-28 00:00:00 Completed [facility] Influenza Virus Vaccine 2013-10-28 00:00:00 Completed [facility] Influenza Virus Vaccine 2013-10-28 00:00:00 Completed [facility] Influenza Virus Vaccine 2013-10-28 00:00:00 Completed [facility] Influenza Virus Vaccine 2013-10-28 00:00:00 Completed [facility] Vital Signs Vital Name Observation Time Observation Value Comments S ronald Systolic blood pressure 2022-10-03 13:10:00 124 mm[Hg] [facility] Diastolic blood pressure 2022-10-03 13:10:00 86 mm[Hg] [facility] Heart rate 2022-10-03 13:10:00 99 /min [facility] Body temperature 2022-10-03 13:10:00 37.11 Michelle [facility] Respiratory rate 2022-10-03 13:10:00 19 /min [facility] Body height 2022-10-03 13:10:00 162.6 cm [facility] Body weight 2022-10-03 13:10:00 93.26 kg [facility] BMI 2022-10-03 13:10:00 35.29 kg/m2 [facility] Oxygen saturation in Arterial blood by Pulse oximetry 2022-10-03 13:10:00 99 /min [facility] Systolic blood pressure 2020-05-31 19:22:00 122 mm[Hg] [facility] Diastolic blood pressure 2020-05-31 19:22:00 83 mm[Hg] [facility] Heart rate 2020-05-31 19:22:00 72 /min [facility] Body temperature 2020-05-31 19:22:00 35.56 Michelle [facility] Respiratory rate 2020-05-31 19:22:00 18 /min [facility] Body height 2020-05-31 19:22:00 165.1 cm [facility] Body weight 2020-05-31 19:22:00 90.084 kg [facility] BMI 2020-05-31 19:22:00 33.05 kg/m2 [facility] Oxygen saturation in Arterial blood by Pulse oximetry 2020-05-31 19:22:00 95 /min [facility] Systolic blood pressure 2019-12-15 16:15:00 124 mm[Hg] [facility] Diastolic blood pressure 2019-12-15 16:15:00 87 mm[Hg] [facility] Heart rate 2019-12-15 16:15:00 76 /min [facility] Body temperature 2019-12-15 16:15:00 37 Michelle [facility] Body height 2019-12-15 16:15:00 165.1 cm [facility] Body weight 2019-12-15 16:15:00 86.592 kg [facility] BMI 2019-12-15 16:15:00 31.77 kg/m2 [facility] Systolic blood pressure 2018-11-03 21:59:00 104 mm[Hg] [facility] Diastolic blood pressure 2018-11-03 21:59:00 70 mm[Hg] [facility] Heart rate 2018-11-03 21:59:00 66 /min [facility] Body height 2018-11-03 21:59:00 165.1 cm [facility] Body weight 2018-11-03 21:59:00 89.767 kg [facility] BMI 2018-11-03 21:59:00 32.93 kg/m2 [facility] Procedures Procedure Date / Time Performed Performing Clinicia n Source DISCLOSURE AND CONSENT MEDICAL & SURGICAL PROCEDURES - FEMALM 2020-05-31 05:01:00 Doctor Unassigned, Schubert [facility] POCT TEST 2020-05-31 00:00:00 Juliane Ruff [facility] CONSENT/REFUSAL FOR DIAGNOSIS AND TREATMENT 2019-12-15 16:05:23 Doctor Unassigned, Schubert [facility] ASSIGNMENT OF BENEFITS 2019-12-15 16:04:32 Docto r Unassigned, Schubert [facility] PAP SMEAR-LIQUID BASED-CP 2018-11-03 22:30:00 Rabia Magana [facility] ASSIGNMENT OF BENEFITS 2018-11-03 21:17:47 Docto r Unassigned, Schubert [facility] Encounters Start Date/Time End Date/Time Encounter Type Admission Type Attending [facility] Care Facility Care Department Encounter ID Source 2022-06-02 06:35:00 Inpatient EM EDDOC, GENERIC HCAMN LALITHA [id number] [facility] 2022-10-03 08:00:00 2022-10-03 08:41:23 Outpatient R SARAH SPENCE [facility] [id number] [facility] 2022-10-03 08:00:00 2022-10-03 08:41:23 Office Visit Sarah Spence [facility] [id number] [id number] [facility] 2022-09-26 00:00:00 2022-09-26 00:00:00 Pre Visit Outreach Yessy Olvera [id number] [id number] [id number] [id number] [facility] 2022-09-13 11:30:00 2022-09-13 11:30:[address] [facility] [id number] [facility] 2022-09-05 16:20:00 2022-09-05 16:20:[address] [facility] [id number] [facility] 2021-04-27 13:00:00 2021-04-27 13:00:[address] [facility] [id number] [facility] 2021-04-27 00:00:00 2021-04-27 00:00:00 Outpatient [facility] [id number] [facility] 2021-01-14 08:50:00 2021-01-14 08:50:[address] [facility] [id number] [facility] 2020-12-05 21:44:00 2020-12-05 23:00:00 Inpatient Feliciano Sotelo [facility] [id number] [facility] 2020-09-28 09:30:00 2020-09-28 09:30:[address] [facility] [id number] [facility] 2020-05-31 13:59:47 2020-05-31 15:28:50 Office Visit Kelley Tatum [facility] [id number] [id number] [id number] [id number] [facility] 2020-05-31 15:00:00 2020-05-31 15:00:00 Outpatient KELLEY SANABRIA GWYN [facility] [id number] [facility] 2020-05-31 00:00:00 2020-05-31 00:00:00 Orders Only Doctor Unassigned, Schubert [facility] [id number] [id number] 4.2.7.2.686 [id number] [facility] 2020-05-17 00:00:00 2020-05-17 00:00:00 Patient Outreach Thanh Mock [facility] [id number] [id number] [id number] [id number] [facility] 2019-12-15 11:06:51 2019-12-15 11:37:41 Office Visit Chino Rabia [facility] [place] [id number] [id number] [id number] [id number] [facility] 2019-12-15 10:45:00 2019-12-15 10:45:00 Outpatient R CHINO RABIA [facility] [id number] [facility] 2019-12-15 00:00:00 2019-12-15 00:00:00 Orders Only Doctor Unassigned, Schubert [facility] [id number] 350.1.13.10 4.2.7.2.686 [id number] [facility] 2019-12-01 09:45:00 2019-12-01 09:45:00 Outpatient R RABIA MAGANA [facility] [id number] [facility] 2018-11-03 16:17:58 2018-11-03 17:15:15 Office Visit RamiroponceRabia [facility] [place] [id number] 350.1.13.10 4.2.7.2.686 [id number] [facility] 2018-11-03 00:00:00 2018-11-03 00:00:00 Orders Only Doctor Unassigned, Schubert [facility] 1..840.114 350.1.13.10 4.2.7.2.686 [id number] [facility] Results Test Description Test Time Test Comments Results Result Co mments Source [id number]:18:00* Test Item Value Reference Range Interpretation Comme nts POCT PREG (test code = 1605) Negative On board controls acceptable with C Line (test code = 3574) Yes POCT PREG LOT # (test code = 3575) POCT PREG TEST DATE ( test code = 3576[id number] 19:18:00* Test Item Value Reference Range Interpretation Comme nts POCT PREG (test code = 1605) Negative On board controls acceptable with C Line (test code = 3574) Yes POCT PREG LOT # (test code = 3575) POCT PREG TEST DATE ( test code = 3576) [facility] [id number] 19:18:00* Test Item Value Reference Range Interpretation Comme nts POCT PREG (test code = 1605) Negative On board controls acceptable with C Line (test code = 3574) Yes POCT PREG LOT # (test code = 3575) POCT PREG TEST DATE ( test code = 3576) [facility] [id number] 19:18:00* Test Item Value Reference Range Interpretation Comme nts POCT PREG (test code = 1605) Negative On board controls acceptable with C Line (test code = 3574) Yes POCT PREG LOT # (test code = 3575) POCT PREG TEST DATE ( test code = 3576) [facility] [id number] 19:18:00* Test Item Value Reference Range Interpretation Comme nts POCT PREG (test code = 1605) Negative On board controls acceptable with C Line (test code = 3574) Yes POCT PREG LOT # (test code = 3575) POCT PREG TEST DATE ( test code = 3576) [facility] [id number] 19:18:00* Test Item Value Reference Range Interpretation Comme nts POCT PREG (test code = 1605) Negative On board controls acceptable with C Line (test code = 3574) Yes POCT PREG LOT # (test code = 3575) POCT PREG TEST DATE ( test code = 3576) [facility] [id number] 19:18:00* Test Item Value Reference Range Interpretation Comme nts POCT PREG (test code = 1605) Negative On board controls acceptable with C Line (test code = 3574) Yes POCT PREG LOT # (test code = 3575) POCT PREG TEST DATE ( test code = 3576) [facility]
--- NOTE | 2023-01-31 20:28 | EDPHYS ---
Physician Documentation [facility] Name: Jony Albrecht Age: 32 yrs Sex: Female : 1990 Arrival Date: 01/31/2023 Time: 18:51 Bed IW2 Private MD: ED Physician Elliott Dasilva HPI: 01/31 19:57 This 32 yrs old Black Female presents to ER via Ambulatory with complaints of Numbness ec2 Of Arm. 19:57 Patient arrives today for evaluation of right upper extremity paresthesia. States that ec2 she was writing something overhead when subsequently she felt numbness and tingling in the right upper extremity. States that the symptoms are worse with positional movements. Denies any head or neck pain, denies any trauma. 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 - Social history:: Smoking status: Patient denies any tobacco usage or history of. ROS: 19:58 Constitutional: as per hpi ec2 Exam: 19:58 Constitutional: GEN: NAD Head: atraumatic Eyes: EOMI Ears: External ears are ec2 normal. CV: regular rate LUNGS: no respiratory distress ABD: non-distended SKIN: no evidence of rashes MSK: no evidence of trauma NEURO: moves all extremities equally, cranial nerves II through XII intact, strength intact all 4 extremities, no pronator drift, normal gait Vital Signs: 19:03 Weight 92.99 kg; Height 5 ft. 4 in. ; Pain 0/10; ll1 19:11 BP 136 / 94; Pulse 87; Resp 18; Temp 97.3; Pulse Ox 98% ; Pain 0/10; ll1 19:03 Body Mass Index 35.19 (92.99 kg, 162.56 cm) ll1 19:03 Pain Scale: Adult ll1 19:11 Pain Scale: Adult ll1 MDM: 19:00 Patient medically screened. ec2 19:11 Data reviewed: vital signs. ec2 19:11 ED course: Patient arrives today due to concern for right upper extremity paresthesia. ec2 Examination remarkable for well-appearing nontoxic dividual is otherwise in no acute distress. Will obtain lab work to evaluate for electrolyte disturbances.. 19:59 ED course: Patient informed nursing that her symptoms had completely resolved and she ec2 no longer wanted to be seen. I was unable to talk to her prior to her leaving. However do not feel this is unreasonable given the resolution of the symptoms I suspect a peripheral neuropathy causing the patient's symptoms, possible cervical radiculopathy.. Administered Medications: No medications were administered Disposition Summary: 01/31/23 20:27 Discharge Ordered Notes: Location: Home ec2 Condition: Stable ec2 Diagnosis - Parasthesias ec2 Forms: - Medication Reconciliation Form ec2 - Thank You Letter ec2 - Antibiotic Education ec2 - Prescription Opioid Use ec2 - Patient Portal Instructions ec2 - Leadership Thank You Letter ec2 Signatures: Dispatcher [employer] Lore Castro RN RN ll1 Elliott Dasilva MD MD ec2 Corrections: (The following items were deleted from the chart) 19:59 19:58 Data reviewed: vital signs, ec2 ec2 19:59 19:58 ED course: Patient arrives today due to concern for right upper extremity ec2 paresthesia. Examination remarkable for well-appearing nontoxic dividual is otherwise in no acute distress. Will obtain lab work to evaluate for electrolyte disturbances.. ec2 20:00 20:00 Patient medically screened. ec2 ec2 20:26 19:59 ED course: Patient informed nursing that her symptoms had completely resolved and ec2 she no longer wanted to be seen. I was unable to talk to her prior to her leaving.. ec2
--- NOTE | 2023-01-31 20:28 | ER ---
Nurse's Notes [facility] Name: Jony Albrecht Age: 32 yrs Sex: Female : 1990 Arrival Date: 01/31/2023 Time: 18:51 Bed IW2 Private MD: Diagnosis: Parasthesias Presentation: 01/31 19:03 Chief complaint: Patient states: R arm numbness for 1 hour [employer]. N trauma or falls. ll1 Coronavirus screen: Client denies travel out of the [place] in the last 14 days. At this time, the client does not indicate any symptoms associated with coronavirus-19. Ebola Screen: Patient denies travel to an Ebola-affected area in the 21 days before illness onset. Initial Sepsis Screen: Does the patient meet any 2 criteria? No. Patient's initial sepsis screen is negative. Does the patient have a suspected source of infection? No. Patient's initial sepsis screen is negative. Risk Assessment: Do you want to hurt yourself or someone else? Patient reports no desire to harm self or others. Onset of symptoms was January 31, 2023. 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 - Social history:: Smoking status: Patient denies any tobacco usage or history of. Assessment: 19:55 General: pt notified registration she was leaving because symptoms have improved and as6 she's feeling better. provider notified . Vital Signs: 19:03 Weight 92.99 kg; Height 5 ft. 4 in. ; Pain 0/10; ll1 19:11 BP 136 / 94; Pulse 87; Resp 18; Temp 97.3; Pulse Ox 98% ; Pain 0/10; ll1 19:03 Body Mass Index 35.19 (92.99 kg, 162.56 cm) ll1 19:03 Pain Scale: Adult ll1 19:11 Pain Scale: Adult ll1 ED Course: 18:52 Patient arrived in ED. im 18:54 Arm band placed on. ll1 18:55 Elliott Dasilva MD is Attending Physician. ec2 19:04 Triage completed. ll1 Administered Medications: No medications were administered Outcome: 20:27 Discharge ordered by . ec2 20:28 Discharged to home ambulatory, as6 20: Condition: stable 20:28 Discharge instructions given to pt left before receiving discharge instructions 20:29 Patient left the ED. as6 Signatures: Lore Martinez RN RN ll1 Wilder Osorio RN RN as6 Siohban Leung Edwin, MD MD ec2
[2023-01-31 20:45] VITALS: BP 136/94; TEMP 97.3; O2SAT 98
== END 2023-01-31 20:29 | disposition home or self-care (01) ==
LOC: ER 18:51
DX: R20.2 Paresthesia of skin (principal); Z91.048 Other nonmedicinal substance allergy status
CPT/HCPCS: 99282